=== PATIENT | male | born 1985 | race African-American/Black ===

== ENCOUNTER 2016-07-13 02:35 | Emergency (ER) | payer OTHER ==
[~2016-07-13] VITALS: Ht 170.2 cm; Wt 61.5 kg
[~2016-07-13 02:35] MED LIST: ABAC300T2 PO; BACTDS PO; CITA-104 PO; DOLU50TA PO; FLUC100T PO; ZOLP10TA PO; [UNRECOGNIZED DRUG - CODE] PO
[2016-07-13 02:37] VITALS: Ht 170.2 cm; Wt 61.5 kg
--- NOTE | 2016-07-13 02:58 | ERD ---
ER Documentation Chief Complaint Date/Time DATE: 07/13/16 TIME: 02:57 Chief Complaint flu symptoms x 2 wks- headache, body aches, nasal congestion, sore throat HPI 31-year-old presents to emergency department for complaints of cough runny nose nasal congestion on and off fever and bodyaches and headache for 2 weeks. Patient has been having dry cough with whitish phlegm, does not cough up any dad. Patient does not have any sick contacts. Patient has history of HIV, is currently not on any treatment. Patient denies any blood in the cough. Patient denies any abdominal pain, chest pain, palpitations, dyspnea on exertion or dyspnea on lying down. Patient denies any shortness of breath or wheezing. Patient's complaining of sore throat, burning pain, for/10 scale, is worse with swallowing. Patient denies any ear pain. ROS All systems reviewed and are negative except as per history of present illness. Medications Home Meds Reported Medications Lamivudine* (Lamivudine*) 300 Mg Tablet, 300 MG PO BID, TAB 12/18/14 Dolutegravir Sodium (Tivicay) 50 Mg Tablet, 50 MG PO BID, TAB 12/18/14 Abacavir* (Abacavir*) 300 Mg Tablet, 300 MG PO BID, TAB 12/18/14 Zolpidem Tartrate* (Ambien*) 10 Mg Tablet, 10 MG PO HS Y for INSOMNIA, TAB 12/18/14 Sulfamethoxazole-Trimethoprim* (Bactrim* DS) 800-160 Mg Tab, 1 TAB PO DAILY, TAB 12/18/14 Citalopram Hydrobromide* (Citalopram Hydrobromide*) 40 Mg Tablet, 40 MG PO DAILY , TAB 12/18/14 Fluconazole* (Diflucan*) 100 Mg Tablet, 100 MG PO DAILY, TAB 12/18/14 Allergies Allergies: Coded Allergies: No Known Allergy (Unverified , 12/22/14) PMhx/Soc History of Surgery: Yes (rectal surgery ) Anesthesia Reaction: No Hx Neurological Disorder: No Hx Respiratory Disorders: No Hx Cardiac Disorders: No Hx Psychiatric Problems: Yes (ANXIETY, DEPRESSION) Hx Miscellaneous Medical Probl: Yes (HIV POS) Hx Alcohol Use: Yes Hx Substance Use: No Hx Tobacco Use: No Smoking Status: Never smoker FmHx Family History: No coronary disease, No diabetes, No other Physical Exam Vitals Vital Signs Date Time Temp Pulse Resp B/P Pulse Ox O2 Delivery O2 Flow Rate FiO2 07/13/16 02:37 98.7 85 20 163/77 98 Physical Exam GENERAL: The patient is well developed and appropriate for usual state of health, in no apparent distress. CHEST: Clear to auscultation bilaterally. There are no rales, wheezes or rhonchi. HEART: Regular rate and rhythm. No murmurs, clicks, rubs or gallops. No S3 or S4. ABDOMEN: Soft, nontender and nondistended. Good bowel sounds. No rebound or guarding. No gross peritonitis. No gross organomegaly or masses. No Liu sign or McBurney point tenderness. BACK: No midline or flank tenderness. EXTREMITIES: Equal pulses bilaterally. There is no peripheral clubbing, cyanosis or edema. No focal swelling or erythema. Full range of motion. Grossly neurovascularly intact. NEURO: Alert and oriented. Cranial nerves 2-12 intact. Motor strength in all 4 extremities with 5/5 strength. Sensation grossly intact. Normal speech and gait. SKIN: There is no apparent rash or petechia. The skin is warm and dry. HEMATOLOGIC AND LYMPHATIC: There is no evidence of excessive bruising or lymphedema. No gross cervical, axillary, or inguinal lymphadenopathy. Results 24 hrs PROCEDURE: XR Chest. CLINICAL INDICATION: Cough TECHNIQUE: AP Portable chest. COMPARISON: No pertinent prior examinations were submitted for comparison. FINDINGS: The cardiomediastinal silhouette is normal. The lungs are clear. The osseous structures are unremarkable. IMPRESSION: No acute findings. RPTAT: HIKT .Jorden Hatfield MD, Date Time Electronically viewed and signed by .Jorden Hatfield MD, on 07/13/2016 03:29 .T/ CC: CLOTILDE MART [employer] Procedures/MDM Medical Decision Making: Patient symptoms are most likely consistent with acute bronchitis, which possibly atypical infection. There is low suspicion for Pneumonia at this time since patients lungs sounds are clear, patient O2 saturation is normal and patient doesnt show any respiratory distress. Patients chest xray doesnt show infiltrates or any other cardiopulmonary emergencies at this time. There is low suspicion for other cardiopulmonary emergencies at this time such as CHF, Pulmonary Embolism, Pneumothorax, Aortic Aneurysm or any other cardiopulmonary emergencies at this time. There is low suspicion for sepsis. Patient appears well and is hemodynamically stable. Fever is controlled with medicines. Disposition: Home. Condition: Stable Prescriptions: Azithromycin, guaifenesin DM Zyrtec ibuprofen Instructions: Patient is advised to take medications as prescribed. Patient is advised to rest. Patient advised to increase fluid intake, do humidifier at home and if possible, do salt water gargles. Patient is advised that if symptoms are worse, shortness of breath, uncontrolled fever, stridor, vomiting, worst signs and symptoms to return to emergency department immediately. Otherwise, patient is advised to follow up with primary doctor in 5-7 days. Departure Diagnosis: Primary Impression: Acute bronchitis Bronchitis organism: unspecified organism Qualified Code: J20.9 - Acute bronchitis, unspecified organism Condition: Stable Patient Instructions: Bronchitis, Antiobiotic Treatment (Adult) Additional Instructions: Patient is advised to take medications as prescribed. Patient is advised to rest. Patient advised to increase fluid intake, do humidifier at home and if possible, do salt water gargles. Patient is advised that if symptoms are worse, shortness of breath, uncontrolled fever, stridor, vomiting, worst signs and symptoms to return to emergency department immediately. Otherwise, patient is advised to follow up with primary doctor in 5-7 days. CLOTILDE MART NP Jul 13, 2016 02:58
--- NOTE | 2016-07-13 03:29 | RADRPT ---
PROCEDURE: XR Chest. CLINICAL INDICATION: Cough TECHNIQUE: AP Portable chest. COMPARISON: No pertinent prior examinations were submitted for comparison. FINDINGS: The cardiomediastinal silhouette is normal. The lungs are clear. The osseous structures are unrema rkable. IMPRESSION: No acute findings. RPTAT: HIKT .Jorden Hatfield MD, MD Date Time Electronically viewed and signed by .Jorden Hatfield MD, MD on 07/13/2016 03:29 .T/
[2016-07-13] MEDS ORDERED: AZIT250T94 PO (03:35)
[2016-07-13] MEDS ORDERED: CETI10CA PO (03:35)
[2016-07-13] MEDS ORDERED: GUAI120S26 PO (03:35)
[2016-07-13] MEDS ORDERED: IBUP-1542 PO (03:35)
[2016-07-13 03:42] VITALS: BP 127/79; PULSE 80; RESP 20; TEMP 98.7
== END 2016-07-13 03:42 | disposition home or self-care (01) ==
LOC: FTE 02:35
DX: J20.9 Acute bronchitis, unspecified (principal)
CPT/HCPCS: 71010

== ENCOUNTER 2017-06-23 17:29 | Emergency (ER) | END 2017-06-23 17:45 | disposition left against medical advice (07) ==

== ENCOUNTER 2017-12-22 03:41 | Emergency (ER) | END 2017-12-22 06:55 | disposition home or self-care (01) ==

== ENCOUNTER 2017-12-24 17:13 | Emergency (ER) | END 2017-12-24 18:45 | disposition left against medical advice (07) ==